=== PATIENT | male | born 1995 | race Caucasian/White ===

== ENCOUNTER 2020-04-30 15:59 | Emergency (ER) | payer SELFPAY ==
[~2020-04-30] VITALS: Ht 167.6 cm; Wt 109.1 kg
[2020-04-30 16:11] VITALS: Ht 167.6 cm; Wt 109.1 kg
[2020-04-30] MEDS ORDERED: AUGMENTIN 875-11 TAB PO (17:14)
[2020-04-30 17:54] VITALS: BP 118/72
== END 2020-04-30 17:54 | disposition home or self-care (01) ==
LOC: D.ER 15:59
DX: S61.210A Laceration without foreign body of right index finger without damage to nail, initial encounter (principal); W45.8XXA Other foreign body or object entering through skin, initial encounter